=== PATIENT | female | born 1965 | race Caucasian/White ===

== ENCOUNTER 2019-11-11 17:15 | Outpatient (CLI) | payer OTHER | END 2019-11-11 17:16 | disposition home or self-care (01) | LOC: LAB 17:15 | PROVIDERS: ATTEND Internal Medicine | DX: Z79.01 Long term (current) use of anticoagulants (principal) | CPT/HCPCS: 85610 ==

== ENCOUNTER 2020-01-17 11:57 | Outpatient (CLI) | payer OTHER | END 2020-01-17 11:58 | disposition home or self-care (01) | LOC: LAB 11:57 | PROVIDERS: ATTEND Internal Medicine | DX: Z79.01 Long term (current) use of anticoagulants (principal) | CPT/HCPCS: 85610 ==

== ENCOUNTER 2020-02-17 16:27 | Outpatient (CLI) | payer OTHER | END 2020-02-17 16:28 | disposition home or self-care (01) | LOC: LAB 16:27 | PROVIDERS: ATTEND Internal Medicine | DX: Z79.01 Long term (current) use of anticoagulants (principal) | CPT/HCPCS: 85610 ==

== ENCOUNTER 2020-03-15 17:38 | Outpatient (CLI) | payer OTHER | END 2020-03-15 17:39 | disposition home or self-care (01) | LOC: LAB 17:38 | PROVIDERS: ATTEND Internal Medicine | DX: Z79.01 Long term (current) use of anticoagulants (principal); N95.0 Postmenopausal bleeding; Z79.890 Hormone replacement therapy | CPT/HCPCS: 85610 ==

== ENCOUNTER 2020-03-23 08:46 | Outpatient (CLI) | payer OTHER ==
[2020-03-23 09:41] LABS: BASOPHILS % (AUTO) 0.4 %; EOSINOPHILS # (AUTO) 0.5 10^3/uL (0.0-0.7); EOSINOPHILS % (AUTO) 8.9 %; HGB - HEMOGLOBIN 13.9 g/dL (12.0-16.0); LYMPHOCYTES # (AUTO) 1.7 10^3/uL (1.5-3.5); LYMPHOCYTES % (AUTO) 32.1 %; MEAN CORPUSCULAR HEMOGLOBIN 32.5 pg (27.0-31.0); MEAN CORPUSCULAR HGB CONC 32.9 g/dL (32.0-36.0); MEAN CORPUSCULAR VOLUME 98.8 fL (81.0-99.0); MEAN PLATELET VOLUME 11.1 fL (7.9-10.8); MONOCYTES # (AUTO) 0.5 10^3/uL (0.0-1.0); MONOCYTES % (AUTO) 8.7 %; NEUTROPHILS # (AUTO) 2.6 10^3/uL (1.5-6.6); NEUTROPHILS % (AUTO) 49.7 %; PLT - PLATELET COUNT 264 10^3/uL (130-450); RED BLOOD COUNT 4.28 10^6/uL (4.20-5.40); RED CELL DISTRIBUTION WIDTH 13.3 % (12.0-15.0); WHITE BLOOD COUNT 5.3 x10^3/uL (4.8-10.8)
[2020-03-23 09:58] LABS: ALBUMIN 3.8 g/dL (3.2-5.5); ALBUMIN/GLOBULIN RATIO 1.2 (1.0-2.2); BILIRUBIN,TOTAL 0.7 mg/dL (0.2-1.0); CALCIUM 9.4 mg/dL (8.5-10.3); CREATININE 0.8 mg/dL (0.4-1.0)
[2020-03-23 14:15] LABS: HEMOGLOBIN A1c% 5.4 % (4.27-6.07)
[2020-03-26 03:46] LABS: ESTRADIOL 44 pg/mL
[2020-03-26 04:12] LABS: PROGESTERONE 2.4 ng/mL
[2020-03-26 11:27] LABS: HSV 2 IGG TYPE SPECIFIC AB <0.90 index
[2020-03-26 16:01] LABS: ANA SCREEN NEGATIVE (NEGATIVE)
== END 2020-03-23 08:47 | disposition home or self-care (01) ==
LOC: LAB 08:46
PROVIDERS: ATTEND Nurse Practitioner Family
DX: Z00.00 Encounter for general adult medical examination without abnormal findings (principal); N95.1 Menopausal and female climacteric states; E55.9 Vitamin D deficiency, unspecified; E78.5 Hyperlipidemia, unspecified; R21 Rash and other nonspecific skin eruption; R73.9 Hyperglycemia, unspecified; N90.89 Other specified noninflammatory disorders of vulva and perineum
CPT/HCPCS: 36415; 80053; 81599; 82306; 82670; 82728; 83036; 83520; 83525; 84144; 84270; 85025; 86038; 86695; 86696

== ENCOUNTER 2020-03-24 17:40 | Outpatient (CLI) | payer OTHER ==
--- NOTE | 2020-03-25 19:10 | Ultrasound Report ---
PROCEDURE: Pelvic w/Transvaginal INDICATIONS: POST MENOPAUSAL BLEEDING TECHNIQUE: Real-time scanning was performed of the pelvic organs, with image documentation. Additional endovagi nal scanning was necessary due to incomplete visualization of the adnexal and endometrial structures by transabdominal scanning. COMPARISON: None. FINDINGS: Transabdominal scanning: Limited scanning through the kidneys shows no hydronephrosis. No pathologi c free abdominal or pelvic fluid. Endovaginal scanning: Uterus: Uterus is normal in size at 7.7 x 3.2 x 4.6 cm. The endometrium measures 6 mm in combined t hickness. Within the endometrial cavity of the uterine fundus, there is a 1.1 x 0.5 x 0.7 cm area of more focal vascularity. Ovaries: Right ovary measures 2.2 x 1.1 x 1.7 cm. Left ovary measures 1.3 x 0.8 x 1.5 cm. No suspici ous ovarian or adnexal mass lesions. IMPRESSION: Possible endometrial polyp noted within the uterine fundus measuring approximately 1.1 x 0.5 x 0.7 cm . In this postmenopausal patient with abnormal vaginal bleeding, consider further evaluation with end ometrial biopsy/sampling. Reviewed by: Lars Elder MD on 03/25/2020 6:09 PM [facility] Approved by: Lars Elder MD on 03/25/2020 6:09 PM [facility] Station ID: [id number]
== END 2020-03-24 17:41 | disposition home or self-care (01) ==
LOC: DI 17:40
PROVIDERS: ATTEND Nurse Practitioner Family
DX: R93.89 Abnormal findings on diagnostic imaging of other specified body structures (principal)
CPT/HCPCS: 76830; 76856

== ENCOUNTER 2020-05-10 11:05 | Outpatient (CLI) | payer OTHER | END 2020-05-10 11:06 | disposition home or self-care (01) | LOC: LAB 11:05 | PROVIDERS: ATTEND Internal Medicine | DX: Z79.01 Long term (current) use of anticoagulants (principal); N95.1 Menopausal and female climacteric states | CPT/HCPCS: 36415; 83001; 84270; 85610 ==

== ENCOUNTER 2020-06-06 09:41 | Outpatient (CLI) | payer OTHER | END 2020-06-06 09:42 | disposition home or self-care (01) | LOC: LAB 09:41 | PROVIDERS: ATTEND Internal Medicine | DX: Z79.01 Long term (current) use of anticoagulants (principal) | CPT/HCPCS: 85610 ==

== ENCOUNTER 2020-06-28 08:00 | Outpatient (CLI) | payer OTHER ==
[2020-06-28 21:29] LABS: CANDIDA GROUP DNA NEGATIVE (NEGATIVE); CANDIDA KRUSEI DNA NEGATIVE (NEGATIVE); TRICHOMONAS VAGINALIS DNA NEGATIVE (NEGATIVE)
== END 2020-06-28 23:59 | disposition home or self-care (01) ==
LOC: LAB.R 08:00
PROVIDERS: ATTEND Obstetrics & Gynecology
DX: B37.3 Candidiasis of vulva and vagina (principal)
CPT/HCPCS: 87661; 87801

== ENCOUNTER 2020-07-05 08:00 | Outpatient (CLI) | payer OTHER | END 2020-07-05 08:01 | disposition home or self-care (01) | LOC: LAB 08:00 | PROVIDERS: ATTEND Internal Medicine | DX: Z79.01 Long term (current) use of anticoagulants (principal) | CPT/HCPCS: 85610 ==

== ENCOUNTER 2020-07-16 12:26 | Outpatient (CLI) | payer OTHER | END 2020-07-16 12:27 | disposition home or self-care (01) | LOC: LAB 12:26 | PROVIDERS: ATTEND Internal Medicine | DX: Z79.01 Long term (current) use of anticoagulants (principal) | CPT/HCPCS: 85610 ==

== ENCOUNTER 2020-07-23 12:23 | Outpatient (CLI) | payer OTHER | END 2020-07-23 12:24 | disposition home or self-care (01) | LOC: LAB 12:23 | PROVIDERS: ATTEND Internal Medicine | DX: Z79.01 Long term (current) use of anticoagulants (principal) | CPT/HCPCS: 85610 ==

== ENCOUNTER 2020-08-01 15:50 | Outpatient (CLI) | payer OTHER | END 2020-08-01 15:51 | disposition home or self-care (01) | LOC: LAB 15:50 | PROVIDERS: ATTEND Internal Medicine | DX: Z79.01 Long term (current) use of anticoagulants (principal) | CPT/HCPCS: 85610 ==

== ENCOUNTER 2020-10-08 12:33 | Outpatient (CLI) | payer OTHER ==
--- NOTE | 2020-10-08 14:54 | Ultrasound Report ---
PROCEDURE: Duplex Ext Veins Left INDICATIONS: LLE PAIN, HX DVT TECHNIQUE: Real-time imaging, as well as color and pulse Doppler interrogation, were performed of the lower extr emity deep veins from the inguinal ligament to the popliteal fossa. COMPARISON: None. FINDINGS: The deep veins are normally compressible, and free of intraluminal thrombus. Color and pu lse Doppler demonstrate normal phasic intraluminal flow. There is normal augmentation response to di stal compression maneuver. IMPRESSION: No left lower extremity DVT. Reviewed by: Genaro Ashford MD on 10/08/2020 2:52 PM PDT Approved by: Genaro Ashford MD on 10/08/2020 2:52 PM PDT Station ID: [id number]
== END 2020-10-08 12:34 | disposition home or self-care (01) ==
LOC: DI 12:33
PROVIDERS: ATTEND Internal Medicine
DX: M79.662 Pain in left lower leg (principal); Z86.718 Personal history of other venous thrombosis and embolism